=== PATIENT | female | born 1975 | race American Indian/Alaskan Native ===

== ENCOUNTER 2017-07-07 18:24 | Emergency (ER) | payer MEDICAID ==
[2017-07-07 18:56] LABS: Basophils % (Auto) 0.6 % (0.0-1.8); Eosinophils # (Auto) 0.1 K/mm3 (0.0-0.4); Eosinophils % (Auto) 2.4 % (0.0-4.3); Hematocrit 38.1 % (30.3-42.9); Hemoglobin 12.7 gm/dl (10.1-14.3); Lymphocytes # (Auto) 2.5 K/mm3 (1.2-5.4); Lymphocytes % (Auto) 47.4 % (13.4-35.0); Mean Corpuscular HGB Conc 33 % (30-34); Mean Corpuscular Hemoglobin 28 pg (28-32); Mean Corpuscular Volume 85 fl (79-97); Monocytes # (Auto) 0.3 K/mm3 (0.0-0.8); Monocytes % (Auto) 5.8 % (0.0-7.3); Platelet Count 416 K/mm3 (140-440); Red Blood Count 4.49 M/mm3 (3.65-5.03); Red Cell Distribution Width 15.1 % (13.2-15.2)
[2017-07-07 19:13] LABS: BUN/Creatinine Ratio 13; Blood Urea Nitrogen 10 mg/dL (7-17); Calcium 9.6 mg/dL (8.4-10.2); Hemolysis Index 3
[2017-07-07] MEDS ORDERED: ZOFRAN IV ONE (21:07)
[2017-07-07] MEDS ORDERED: MORPHINE IV ONE (21:07)
--- NOTE | 2017-07-07 21:12 | Emergency Department Report ---
ED Female HPI - General Chief complaint: Vaginal Bleeding Stated complaint: VAGINAL BLEEDING Time Seen by Provider: 07/07/17 20:47 Source: patient Mode of arrival: Ambulatory Limitations: No Limitations - History of Present Illness Initial comments: Patient is 41 years old female with history of hypertension. Patient presented to the ER after she was referred from Dr. Mason Carval[facility] for evaluation of vaginal bleeding. Patient stated that she's been having this bleeding since June that it just got warts in the last few days. She stated that she is passing clots associated with abdominal cramping. She stated that she discuss with Dr. Carvalho and hysterectomy and she is ready for hysterectomy now. MD Complaint: vaginal bleeding -: Gradual, days(s) Radiation: suprapubic Severity: severe Severity scale (0 -10): 8 Quality: cramping Are you Now?: No Associated Symptoms: vaginal bleeding - Related Data Allergies Allergy/AdvReac Type Severity Reaction Status Date / Time No Known Allergies Allergy Unverified 07/07/17 18:32 ED Review of Systems ROS: Stated complaint: VAGINAL BLEEDING Other details as noted in HPI Comment: All other systems reviewed and negative Constitutional: denies: chills, fever Respiratory: denies: cough, shortness of breath, SOB with exertion Cardiovascular: denies: chest pain, palpitations, dyspnea on exertion Gastrointestinal: abdominal pain. denies: nausea, vomiting, diarrhea, constipation, hematemesis, melena, hematochezia Genitourinary: denies: urgency, dysuria, frequency, hematuria, abnormal menses, dyspareunia Neurological: denies: headache, weakness, numbness, paresthesias, confusion ED Past Medical Hx - Past Medical History Additional medical history: morbid obesity - Surgical History Additional Surgical History: - Social History Smoking Status: Never Smoker Substance Use Type: None ED Physical Exam - General Limitations: No Limitations General appearance: alert, in no apparent distress - Head Head exam: Present: atraumatic, normocephalic, normal inspection - Eye Eye exam: Present: normal appearance, PERRL - ENT ENT exam: Present: normal exam, normal orophraynx, mucous membranes moist - Neck Neck exam: Present: normal inspection, full ROM. Absent: tenderness, meningismus, lymphadenopathy, thyromegaly - Respiratory Respiratory exam: Present: normal lung sounds bilaterally. Absent: respiratory distress, wheezes, rales, rhonchi, stridor, chest wall tenderness, accessory muscle use, decreased breath sounds, prolonged expiratory - Cardiovascular Cardiovascular Exam: Present: tachycardia, normal heart sounds - GI/Abdominal GI/Abdominal exam: Present: soft, tenderness (suprapubic), normal bowel sounds. Absent: distended, guarding, rebound, rigid, organomegaly, mass, bruit, pulsatile mass, hernia - Extremities Exam Extremities exam: Present: normal inspection, full ROM, normal capillary refill - Back Exam Back exam: Present: normal inspection, full ROM. Absent: tenderness, CVA tenderness (R), CVA tenderness (L), muscle spasm, paraspinal tenderness, vertebral tenderness - Neurological Exam Neurological exam: Present: alert, oriented X3, CN II-XII intact, normal gait - Skin Skin exam: Present: warm, intact, normal color ED Course Vital Signs 07/07/17 07/07/17 07/07/17 18:28 21:59 22:06 Temperature 97.9 F 98.5 F Pulse Rate 127 H 110 H Respiratory 22 20 20 Rate Blood Pressure 176/97 Blood Pressure 143/76 [Right] O2 Sat by Pulse 97 99 99 Oximetry 07/07/17 23:08 Temperature Pulse Rate Respiratory 18 Rate Blood Pressure Blood Pressure [Right] O2 Sat by Pulse Oximetry - Reevaluation(s) Reevaluation #1: 07/07/17 23:43 Patient stated that she is feeling much better. ED Medical Decision Making - Lab Data Result diagrams: 07/07/17 18:38 07/07/17 18:38 - Radiology Data Radiology results: report reviewed Referring Physician: BAILEY STEWART Patient Name: SABINE CARVALHO Date of : 1975 Sex: Female Report Date: 2017-07-07 Report Status: [place] [address] Ultrasound Report Signed Patient: SABINE CARVALHO MR#: [id number] : 1975 Acct:[id number] Age/Sex: 41 / F ADM Date: 07/07/17 Loc: ED Attending Dr: Ordering Physician: BAILEY STEWART Date of Service: 07/07/17 Procedure(s): US transvaginal Accession Number(s): [id number] cc: BAILEY STEWART FINAL REPORT EXAM: US TRANSVAGINAL HISTORY: HEAVY VAGINAL BLEED WITH PAIN TECHNIQUE: Ultrasound pelvis transvaginal PRIORS: None. FINDINGS: Uterus measures 9.2 x 4.5 x 5.4 centimeters Endometrial stripe does not appear thickened Multiple cervical lower uterine segment nabothian cysts are noted. No focal myometrial abnormality identified The ovaries were not identified sonographically No free fluid seen. IMPRESSION: The ovaries were not identified sonographically multiple nabothian cyst noted at the cervix and lower uterine segment. Transcribed By: YANET Dictated By: INA BERGMAN MD Electronically Authenticated By: INA BERGMAN MD Signed Date/Time: 07/07/172322 DD/ 22 TD/TT: 07/07/172322 - Medical Decision Making I discussed the patient was Dr. Mason Carvahlo. Dr. Mason Carvalho advised patient can go home and follow-up with him in the office in the next 2-3 days. Critical care attestation.: If time is entered above; I have spent that time in minutes in the direct care of this critically ill patient, excluding procedure time. ED Disposition Clinical Impression: Vaginal bleeding Disposition: DC-01 TO HOME OR SELFCARE Is pt being admited?: No Condition: Stable Instructions: Dysfunctional Uterine Bleeding (ED) Referrals: MASON CARVALHO MD [Staff Physician] - 3-5 Days
[2017-07-07 21:42] LABS: INR 0.92 (0.87-1.13)
[2017-07-07 21:43] LABS: Partial Thromboplastin Time 25.8 Sec. (24.2-36.6)
[2017-07-07 22:18] LABS: Bilirubin,Urine NEG (Negative); Blood,Urine LG (Negative); Color,Urine Red (Yellow); Urobilinogen,Urine < 2.0 mg/dL (<2.0)
[2017-07-07 22:19] LABS: RBC,Urine > 182.0 /HPF (0.0-6.0)
--- NOTE | 2017-07-07 23:28 | Ultrasound Report ---
FINAL REPORT EXAM: US TRANSVAGINAL HISTORY: HEAVY VAGINAL BLEED WITH PAIN TECHNIQUE: Ultrasound pelvis transvaginal PRIORS: None. FINDINGS: Uterus measures 9.2 x 4.5 x 5.4 centimeters Endometrial stripe does not appear thickened Multiple cervical lower uterine segment nabothian cysts are noted. No focal myometrial abnormality identified The ovaries were not identified sonographically No free fluid seen. IMPRESSION: The ovaries were not identified sonographically multiple nabothian cyst noted at the cervix and lower uterine segment.
--- NOTE | 2017-07-07 23:34 | Ultrasound Report ---
FINAL REPORT EXAM: US PELVIC COMPLETE HISTORY: HEAVY VAGINAL BLEED WITH PAIN TECHNIQUE: PRIORS: None. FINDINGS: Uterus measures 9.2 x 4.5 x 5.4 centimeters Endometrial stripe does not appear thickened Multiple cervical lower uterine segment nabothian cysts are noted. No focal myometrial abnormality identified The ovaries were not identified sonographically No free fluid seen. IMPRESSION: The ovaries were not identified sonographically multiple nabothian cyst noted at the cervix and lower uterine segment.
[2017-07-08 00:16] VITALS: BP 135/77
== END 2017-07-08 00:16 | disposition home or self-care (01) ==
LOC: ED 18:24
DX: N93.8 Other specified abnormal uterine and vaginal bleeding (principal); I10 Essential (primary) hypertension
CPT/HCPCS: 36415; 76830; 76856; 80048; 81001; 84702; 85025; 85610; 85730; 86850; 86900; 86901; 96374; 96375; 99284; J2270; J2405